=== PATIENT | female | born 1980 | race Caucasian/White ===

== ENCOUNTER 2021-02-21 12:41 | Day surgery (SDC) | payer BC ==
[~2021-02-21] VITALS: Ht 157.5 cm; Wt 124.0 kg
[~2021-02-21 12:41] MED LIST: CHLORHEXIDINE 0.12% 15 ML MOUTHWASH. SWSP ONE; DEXT20TA2 PO; DEXT30TA2 PO; DILT60TA PO; ENOX120D SQ; ESZO3TAB28 PO; IBUP-1060 PO; IV RINGERS,LACTATED 1000ML 1,000 ML IV SCH; PROCHLORPERAZINE 10 MG/2 ML VIAL. IVP PRN; PROP20TA PO; fentaNYL PF VIAL 100 MCG/2 ML VIAL IVP PRN
[2021-02-21] MEDS ORDERED: LIDOCAINE 2% PF 5 ML VIAL. ONE (12:43)
[2021-02-21] MEDS ORDERED: DEXAMETHASONE SOD PHOS 4 MG/ML VIAL ONE (12:43)
[2021-02-21] MEDS ORDERED: PROPOFOL 10 MG/ML (20ML) VIAL. IV ONE ×2 (12:43→16:13)
[2021-02-21] MEDS ORDERED: ONDANSETRON PF 4 MG/2 ML VIAL. ONE (12:43)
[2021-02-21] MEDS ORDERED: fentaNYL PF VIAL 100 MCG/2 ML VIAL ONE ×2 (12:44→16:55)
[2021-02-21] MEDS ORDERED: MIDAZOLAM HCL/PF 2 MG/2 ML VIAL. ONE (12:45)
[2021-02-21] MEDS ORDERED: ROCURONIUM 50 MG/5 ML VIAL. ONE (12:47)
[2021-02-21 13:19] VITALS: BP 154/86
[2021-02-21] MEDS ORDERED: BUPIVACAINE-EPI 0.5%-1:200000 MPF 30 ML VIAL. ONE (13:40)
[2021-02-21] MEDS ORDERED: GELATIN SPONGE SIZE 100. ONE (13:41)
[2021-02-21] MEDS ORDERED: CHLORHEXIDINE 0.12% 15 ML MOUTHWASH. ONE (13:41)
[2021-02-21] MEDS ORDERED: DEXMEDETOMIDINE 200 MCG/2 ML VIAL. IV ONE (14:00)
[2021-02-21] MEDS ORDERED: REMIFENTANIL 1 MG VIAL. IV ONE (14:46)
[2021-02-21] MEDS ORDERED: NEOSTIGMINE METHYLSULFATE 5 MG/5 ML SYRINGE. ONE (15:10)
[2021-02-21] MEDS ORDERED: GLYCOPYRROLATE 1 MG/5 ML VIAL. ONE (15:10)
[2021-02-21] MEDS ORDERED: VANCOMYCIN 1 GM VIAL. ONE (15:25)
[2021-02-21] MEDS ORDERED: SEVOFLURANE 61 TO 120 MINUTES. IH ONE (15:48)
[2021-02-21] MEDS: fentaNYL PF VIAL 100 MCG/2 ML VIAL IVP PRN ×2 (16:57→17:11)
--- NOTE | 2021-02-21 17:01 | PDOC4 ---
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
[2021-02-21] MEDS ORDERED: oxyCODONE/APAP 5/325 1 TAB TABLET ONE (17:14)
[2021-02-21 17:15] VITALS: BP 122/73
[2021-02-21] MEDS ORDERED: oxyCODONE/APAP 5/325 1 TAB TABLET PO ONE (17:15)
--- NOTE | 2021-02-21 20:38 | OP ---
DATE OF SURGERY: 02/21/2021 IDENTIFICATION: A 40-year-old female. 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 OPERATING SURGEON: Nj Aquino DMD PREOPERATIVE DIAGNOSES: Morbid obesity, history of deep venous thrombosis with chronic daily subcutaneous Lovenox injections, hypertension, attention deficit disorder, severe anxiety and depression, carious nonrestorable dentition. POSTOPERATIVE DIAGNOSES: Morbid obesity, history of deep venous thrombosis with chronic daily subcutaneous Lovenox injections, hypertension, attention deficit disorder, severe anxiety and depression, carious nonrestorable dentition. PROCEDURE PERFORMED: General anesthesia surgical removal of all remaining teeth #3, 4 5, 6, 7, 8, 9, 10, 11, 12, 13, 14, 22, 23, 24, 25, 26, 27, 28, and alveoloplasty of upper right, upper left, right lower left quadrants. BRIEF HISTORY FOR PROCEDURE: The patient is referred to our clinic for removal of aforementioned teeth. They are nonrestorable. Dentition is in poor state and painful. She has multiple comorbidities including daily injections with Lovenox for her chronic subcutaneous anticoagulation. She has had multiple DVTs with believed 2 saddle PEs that she has nearly survived. In an effort to bridge her treatment and have a secured airway to manage potential excessive bleeding, we have continued her anticoagulant medications and chosen to perform surgery in an escalated stitch setting for her maximum safety. History and physical obtained in our clinic as was permit and surgery was scheduled. ESTIMATED BLOOD LOSS: Approximately 20 mL. DRAINS PLACED: None. SPECIMEN SENT: None. Teeth were disposed of in the OR, bile acid. COMPLICATIONS: None noted at the time of surgery. OPERATIVE DESCRIPTION: After the history and physical was updated the preoperative holding area, the patient was transported by the Anesthesia Service to the operating suite, placed in the supine position. General anesthesia was induced. The patient was then intubated with an oral intubation, which was secured to the upper left face. A moistened throat pack was placed and a time-out was initiated. All preoperative staff was in agreement. Surgery began with administration of 22 mL of 0.5% bupivacaine, 1:200,000 epinephrine. This is in the proposed surgical areas. Care was taken and a full-thickness mucoperiosteal flap was created with a 15 blade and reflected with periosteal elevators. Teeth were then luxated, elevated and extracted with forceps. Surgical instruments are rongeurs and the alveoloplasty was performed with rongeurs, bone file, curettage. This was performed in all 4 quadrants; upper right, upper left, lower right, lower left. There were significant periapical pathologies indicative of abscesses from the nonrestorable dentition. These had had some time to ____ these as I believe these teeth have been nonrestorable for some time. Care was taken to remove periapical pathology, curette each site and smooth each site to increase the comfort for the patient and reduce the potential bleeding. These sites were lavaged, suctioned and each site was packed with Gelfoam with powder coating of vancomycin. The extraction sites were then sutured closed in a running locked fashion with 3-0 chromic gut sutures in a running locked fashion on all 4 quadrants. The sites were found to be hemostatic at the culmination of the procedure and in the PACU. Note, the oral cavity was then lavaged and suctioned. An OG was passed through, several areas were added with some Dermabond to assist in hemostasis as the patient does have chronic daily Lovenox injections to perform anticoagulation to avoid future DVTs. This was performed to assist in hemostasis for the patient. The patient appeared to be in stable condition and extubation was performed successfully without complication. The patient was then transported to the PACU in stable condition. BENOIT/OSVALDO DR: Swapnil TID: [id number]
== END 2021-02-21 17:45 | disposition home or self-care (01) ==
LOC: SURG 12:41
PROVIDERS: ATTEND Dentist Oral and Maxillofacial Surgery
DX: K02.63 Dental caries on smooth surface penetrating into pulp (principal); E66.01 Morbid (severe) obesity due to excess calories; I10 Essential (primary) hypertension; F41.9 Anxiety disorder, unspecified; F32.9 Major depressive disorder, single episode, unspecified; I48.91 Unspecified atrial fibrillation; Z79.899 Other long term (current) drug therapy; Z98.890 Other specified postprocedural states; Z20.822 Contact with and (suspected) exposure to COVID-19
CPT/HCPCS: 41874; 41899; 81025; 87426; A4364; A4930; J0690; J1100; J2250; J2405; J2704; J2710; J3010; J3370; J3490; A4657